=== PATIENT | male | born 1980 | race Asian ===

== ENCOUNTER 2022-02-09 19:07 | Outpatient (CLI) | payer OTHER | END 2022-02-09 19:08 | disposition home or self-care (01) | LOC: LAB 19:07 | DX: Z01.89 Encounter for other specified special examinations (principal) | CPT/HCPCS: 36415 ==

== ENCOUNTER 2022-06-27 08:00 | Outpatient (CLI) | payer MEDICAID, OTHER ==
--- NOTE | 2022-06-27 16:24 | XRAY Report ---
PROCEDURE: Foot 3 View RT INDICATIONS: R FOOT PX TECHNIQUE: 3 views of the foot were acquired. COMPARISON: None. FINDINGS: Bones: No fractures or dislocations. No suspicious bony lesions. Soft tissues: No tibiotalar joint effusion. Achilles tendon appears normal. IMPRESSION: No acute osseous abnormality. If symptoms persist, follow-up radiographs and/or CT may be helpful for further evaluation. Reviewed by: Octaviano Wagner MD on 06/27/2022 4:23 PM PDT Approved by: Octaviano Wagner MD on 06/27/2022 4:23 PM PDT Station ID: [id number]
== END 2022-06-27 23:59 | disposition home or self-care (01) ==
LOC: DI.N 08:00
PROVIDERS: ATTEND Physician Assistant Medical
DX: M79.671 Pain in right foot (principal)

== ENCOUNTER 2022-12-16 22:08 | Outpatient (CLI) | payer MEDICAID | END 2022-12-16 22:09 | disposition critical access hospital (66) | LOC: EMS 22:08 | DX: S01.01XA Laceration without foreign body of scalp, initial encounter (principal); X58.XXXA Exposure to other specified factors, initial encounter | CPT/HCPCS: A0425; A0429; A0999 ==

== ENCOUNTER 2022-12-16 22:27 | Emergency (ER) | payer MEDICAID ==
--- NOTE | 2022-12-16 22:32 | ED Physician Documentation ---
PD HPI HEAD INJURY - Stated complaint Stated Complaint: HEAD WOUND Results - Vitals Vitals: Vital Signs - 24 hr 12/16/22 22:33 Temperature 37.2 C Heart Rate 62 Respiratory 16 Rate Blood Pressure 140/103 H O2 Saturation 96 Oxygen O2 Source Room air PD Medical Decision Making - ED course ED course: I was in the room when this patient was brought into room 6 of the emergency department by EMS. I was at the bedside as EMS gave report. The patient was contradicting some of EMS report, and thus I stepped outside with EMS to gather more information from them away from the patient. They indicate to me that the patient has been giving some variations on the initial HPI. Per EMS report, patient was at a bar in [place] when he noticed bleeding from a scalp wound that was sustained in the past due to a head injury. 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 While I was in the room with patient and EMS, the patient was indicating that he did not have any bleeding until tonight when he put on a hat. ED RN who then was triaging patient indicates that patient said he injured his head 2 PM today, but that he did not notice any bleeding until tonight when he put on a hat. Per EMS report, the patient has a scalp laceration and, on ED presentation, he has a wrap-around gauze applied to his head and I notice a small amount of bleeding on this gauze on arrival. Based on this information and the appearance when he first arrives of blood on the gauze, I ordered lidocaine in anticipation of likely repair, such as stitches or suraj, of a scalp laceration. I was then tending to other patients in the emergency department and was about to go back into the room to reassess patient when I was informed that he had just eloped from the emergency department. Patient did not exhibit any slurred speech during his brief ER stay, and per other ER staff, patient had a steady gait when he eloped from the emergency department.
[2022-12-16 22:36] VITALS: BP 140/103
[2022-12-16] MEDS ORDERED: LIDOCAINE MPF 1%-EPI 1:200000 10 ML VIAL SUBQ STA (22:37)
[2022-12-16] MEDS ORDERED: lidocaine 1% 20 ML MDV SUBQ STA (22:58)
== END 2022-12-17 00:02 | disposition left against medical advice (07) ==
LOC: EDUNIT# → ED 22:27
DX: S09.90XA Unspecified injury of head, initial encounter (principal); X58.XXXA Exposure to other specified factors, initial encounter; Z53.29 Procedure and treatment not carried out because of patient's decision for other reasons
CPT/HCPCS: 99282; 99283